=== PATIENT | female | born 1965 | race Caucasian/White ===

== ENCOUNTER 2020-07-22 15:10 | Emergency (ER) | payer OTHER ==
[~2020-07-22] VITALS: Ht 162.6 cm; Wt 60.3 kg
--- NOTE | 2020-07-22 15:10 | NUR ---
55 YEAR OLD FEMALE BIBA FROM [facility] [place] FOR G TUBE DISLODGEMENT X 30MINS AGO. PER EMS PT IS BASELINE APHASIC. PER EMS G TUBE WAS REPLACED IMMEDIATELY WITH SAME SIZE PRIOR TO TRANSFER. SITE CLEAN DRY INTACT WITHOUT BLEEDING. PT ALERT AND AWAKE, BREATHING EVEN AND UNLABORED, SKIN WARM AND DRY. BED IN LOWEST POSITION, LOCKED, BED RAIL UPX1. PMH - ANXIETY, DYSPHAGIA ALLERGIES - NKA
--- NOTE | 2020-07-22 15:10 | NUR ---
Note undone in EDM - 07/22/20 at 1524 by [email or web address] 55 YEAR OLD FEMALE [place] [facility] [place] 30MINS AGO. PER EMS PT IS BASELINE APHASIC. PER EMS G TUBE WAS REPLACED IMMEDIATELY WITH SAME SIZE PRIOR TO TRANSFER. SITE CLEAN DRY INTACT WITHOUT BLEEDING. PT ALERT AND AWAKE, BREATHING EVEN AND UNLABORED, SKIN WARM AND DRY. BED IN LOWEST POSITION, LOCKED, BED RAIL UPX1. PMH - ANXIETY, DYSPHAGIA ALLERGIES - NKA
[2020-07-22 15:13] VITALS: BP 115/78
--- NOTE | 2020-07-22 15:15 | NUR ---
ERMD AT BEDSIDE, REPLACED G TUBE WITHOUT COMPLICATIONS. GAUZE PLACED AND TAPED ONTO SITE. WAITING FOR XRAY
--- NOTE | 2020-07-22 15:50 | NUR ---
XRAY AT BEDSIDE
--- NOTE | 2020-07-22 17:01 | NUR ---
patient resting with eyes closed, breathing even and unlabored. no distress noted. will continue to monitor.
--- NOTE | 2020-07-22 18:00 | NUR ---
patient resting with eyes closed, breathing even and unlabored. no distress noted. will continue to monitor.
--- NOTE | 2020-07-22 18:58 | NUR ---
patient alert and awake, breathing even and unlabored. no distress noted. will continue to monitor.
--- NOTE | 2020-07-22 19:03 | NUR ---
report given to eran PRICE, transfer of care at this time
--- NOTE | 2020-07-22 19:06 | NUR ---
RECEIVED REPORT FROM ALBERT LEIVA FOR CONTINUITY OF CARE.
--- NOTE | 2020-07-22 19:17 | NUR ---
PT RESTING IN BED, CHEST RISE AND FALL NOTED. ALL NEEDS MET. VSS. BED LOCKED AND IN LOWEST POSITION, SIDE RAIL UPX2. WILL CONTINUE TO MONITOR.
--- NOTE | 2020-07-22 19:33 | NUR ---
TRANSPORT ARRIVED TO [facility].
--- NOTE | 2020-07-22 19:34 | NUR ---
Patient discharged with v/s stable. Written and verbal after care instructions given and explained. Patient verbalized understanding. [facility]. All questions addressed prior to discharge. Advised to follow up with PMD.
--- NOTE | 2020-07-22 19:34 | NUR ---
REPORT CALLED TO CHARGE NURSE, LB REGARDING PT STATUS.
[2020-07-22 19:37] VITALS: BP 119/89
== END 2020-07-22 19:34 | disposition home or self-care (01) ==
LOC: MED 15:10
DX: T85.898A Other specified complication of other internal prosthetic devices, implants and grafts, initial encounter (principal); D64.9 Anemia, unspecified; R13.10 Dysphagia, unspecified
CPT/HCPCS: 43246; 74240; 99284; Q0092; 40830